=== PATIENT | male | born 2000 | race Caucasian/White ===

== ENCOUNTER 2021-02-10 12:09 | Emergency (ER) | payer MEDICAID ==
[2021-02-10 13:11] LABS: BASOPHIL 0.2 % (0-2); EOSINOPHIL 0.5 % (0-5); HCT 41.8 % (42.0-52.0); HGB 14.3 g/dl (13.2-18.0); LYMPHOCYTE 11.4 % (15-48); MCH 28.5 pg (25.0-31.0); MCHC 34.2 g/dL (32.0-36.0); MCV 83.3 fL (78.0-100.0); MONOCYTE 11.2 % (0-12); MPV 9.6 fL (6.0-9.5); NEUTROPHIL 76.5 % (41-80); NRBC 0; PLT 245 K/uL (150-400); RBC 5.02 M/uL (4.70-6.00); RDW 12.5 % (11.5-14.0); WBC 4.4 K/uL (4.0-10.5)
[2021-02-10 13:28] LABS: ALBUMIN 4.4 g/dL (3.4-5.0); ALKALINE PHOSHATASE 94 U/L (46-116); ALT 33 U/L (16-63); AST 19 U/L (15-37); BILIRUBIN - TOTAL 0.4 mg/dL (0.2-1.0); BUN 7 mg/dL (7-18); BUN/CREAT RATIO (CALC) 9.5 RATIO; CHLORIDE 102 mmol/L (98-107); CO2 (BICARBONATE) 26 mmol/L (21-32); CREATININE 0.74 mg/dL (0.67-1.17); GLOBULIN (CALCULATION) 3.6 g/dL; GLUCOSE 85 mg/dL (74-106); POTASSIUM 3.6 mmol/L (3.5-5.1)
[2021-02-10] MEDS ORDERED: ZOFRAN4 M1 PO (14:33)
== END 2021-02-10 14:48 | disposition home or self-care (01) ==
LOC: FER 12:09
PROVIDERS: Emergency Medicine
DX: U07.1 COVID-19 (principal); F17.200 Nicotine dependence, unspecified, uncomplicated
CPT/HCPCS: 36415; 71045; 80053; 84484; 85025; 85379; 93005